=== PATIENT | female | born 2000 | race Caucasian/White ===

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

== ENCOUNTER 2022-09-28 01:05 | Emergency (ER) | payer OTHER ==
[2022-09-28] MEDS ORDERED: IBUPROFEN 800 MG TABLET PO STA (01:55)
[2022-09-28] MEDS ORDERED: hydrOXYzine PAMOATE 25 MG CAPSULE PO STA (02:49)
[2022-09-28 03:10] LABS: RAPID STREP SCREEN Negative (Negative)
[2022-09-28 03:50] LABS: B. PARAPERTUSSIS- RESP PCR PAN NOT DETECTED; B. PERTUSSIS- RESP PCR PANEL NOT DETECTED; C. PNEUMONIAE- RESP PCR PANEL NOT DETECTED; CORONAVIRUS 229E-RESP PCR NOT DETECTED; CORONAVIRUS HKU1-RESP PCR NOT DETECTED; CORONAVIRUS NL63-RESP PCR NOT DETECTED; CORONAVIRUS OC43-RESP PCR NOT DETECTED; HUMAN METAPNEUMOVIRUS NOT DETECTED; INFLUENZA A- RESP PCR PANEL NOT DETECTED; INFLUENZA B - RESP PCR PANEL NOT DETECTED; M. PNEUMONIAE- RESP PCR PANEL NOT DETECTED; PARAINFLUENZA VIRUS 1 NOT DETECTED; PARAINFLUENZA VIRUS 2 NOT DETECTED; PARAINFLUENZA VIRUS 3 NOT DETECTED; PARAINFLUENZA VIRUS 4 NOT DETECTED; RHINOVIRUS/ENTEROVIRUS NOT DETECTED; RSV- RESP PCR PANEL NOT DETECTED; SARS-CoV-2 -RESP PCR PANEL NOT DETECTED
[2022-09-28] MEDS ORDERED: AMOXICILLIN 250 MG CAPSULE PO STA (04:09)
--- NOTE | 2022-09-28 04:27 | ED Physician Documentation ---
PD HPI HEENT - Stated complaint Stated Complaint: F/V/SORE THROAT/HEADACE - Chief complaint Chief Complaint: Fever - History obtained from History obtained from: Patient, Family (Mother) - Additional information Additional information: Patient is a 22-year-old female presenting for evaluation of fevers for the past 6 days along with a sore throat. Patient states her fevers have been as high as 10 2-1 03. She has been using ibuprofen and Tylenol and has not been able to get her fevers to lower. She went to the walk-in clinic 2 days ago and had a negative rapid strep test with a culture pending. She also reports a negative COVID and a flu test. She states that she has a history of strep infections and per mother at the bedside patient and other family members have had strep infections in the past with a rapid is negative but the culture is abnormal. As the walk-in clinic was closed yesterday they do not yet have the results for the culture.She denies cough, congestion, abdominal symptoms. Review of Systems Constitutional: reports: Fever Throat: reports: Sore throat Cardiac: denies: Chest pain / pressure Respiratory: denies: Dyspnea, Cough GI: denies: Abdominal Pain, Vomiting : denies: Dysuria Musculoskeletal: denies: Back pain Neurologic: denies: Headache PD PAST MEDICAL HISTORY - Past Medical History Respiratory: Asthma - Past Surgical History Past Surgical History: No - Present Medications Home Medications: Ambulatory Orders Medication Instructions Recorded Confirmed Cyclobenzaprine [Flexeril] 10 mg PO TID PRN #14 tablet 06/17/17 Amoxicillin 1,000 mg PO DAILY 10 Days #20 cap 09/28/22 - Allergies Allergies/Adverse Reactions: Allergies Allergy/AdvReac Type Severity Reaction Status Date / Time No Known Drug Allergies Allergy Verified 06/17/17 17:58 - Social History Does the pt smoke?: No Smoking Status: Never smoker Does the pt drink ETOH?: No Does the pt have substance abuse?: No - Immunizations Immunizations are current?: Yes - POLST Patient has POLST: No PD ED PE NORMAL - General General: Alert and oriented X 3, No acute distress, Well developed/nourished - HEENT HEENT: Atraumatic, Moist mucous membranes, Other (Exudate to bilateral tonsils, no signs of peritonsillar abscess, normal speech) - Neck Neck: Supple, no meningeal sign - Cardiac Cardiac: RRR, No murmur - Respiratory Respiratory: No respiratory distress, Clear bilaterally - Abdomen Abdomen: Soft, Non tender, Non distended - Back Back: No CVA TTP - Neuro Neuro: Alert and oriented X 3, No motor deficit, Normal speech Results - Vitals Vitals: Vital Signs - 24 hr 09/28/22 09/28/22 09/28/22 01:32 03:19 03:39 Temperature 39.4 C H 39.4 C H Heart Rate 117 H 93 Respiratory 20 16 Rate Blood Pressure 127/64 121/71 O2 Saturation 99 98 09/28/22 04:36 Temperature 37.3 C Heart Rate 73 Respiratory 19 Rate Blood Pressure 143/96 H O2 Saturation 95 Oxygen O2 Source Room air - Labs Labs: Laboratory Tests 09/28/22 09/28/22 02:45 02:45 Nasal Adenovirus (PCR) NOT DETECTED Nasal B. parapertussis DNA (PCR) NOT DETECTED Nasal Coronavir 229E PCR NOT DETECTED Nasal Coronavir HKU1 PCR NOT DETECTED Nasal Coronavir NL63 PCR NOT DETECTED Nasal Coronavir OC43 PCR NOT DETECTED Nasal Enterovir/Rhinovir PCR NOT DETECTED Nasal Influenza B PCR NOT DETECTED Nasal Influenza A PCR NOT DETECTED Nasal Parainfluen 1 PCR NOT DETECTED Nasal Parainfluen 2 PCR NOT DETECTED Nasal Parainfluen 3 PCR NOT DETECTED Nasal Parainfluen 4 PCR NOT DETECTED Nasal RSV (PCR) NOT DETECTED Nasal B.pertussis DNA PCR NOT DETECTED Nasal C.pneumoniae (PCR) NOT DETECTED Eladio Human Metapneumo PCR NOT DETECTED Nasal M.pneumoniae (PCR) NOT DETECTED Nasal SARS-CoV-2 (PCR) NOT DETECTED Group A Strep Rapid Negative PD Medical Decision Making - ED course Complexity details: reviewed results, re-evaluated patient, d/w patient, d/w family ED course: Patient presenting for evaluation of fever and sore throat for the past 6 days with recent negative outpatient testing at the walk-in clinic. She is febrile here and tachycardic but otherwise clinically well-appearing. She does not have symptoms to suggest meningitis. She does have exited to her tonsils with no signs of peritonsillar abscess or deep space infection.No cough or congestion or symptoms to suggest pneumonia or intra-abdominal process. Rapid strep test is negative and the respiratory PCR is negative for tested viruses. She is feeling better here with p.o. Tylenol with reduction in fever and is tolerating p.o. Patient and mother expressed concerns as patient has a history of strep infections in the past with a negative rapid test and positive cultures and they are concerned as her symptoms have been ongoing without improvement for 6 days.We utilize shared decision making and given her symptoms and history we have opted to go ahead and initiate treatment for possible strep infection while culture is pending. I did recommend that they check the portal in 2 to 3 days to check for the culture results.Patient and mother both advised on concerning symptoms to return for. Departure - Departure Disposition: 01 Home, Self Care Clinical Impression: Fever, Pharyngitis Condition: Stable Instructions: ED Fever Control, ED Strep Pharyngitis Poss Prescriptions: Amoxicillin 1,000 mg PO DAILY 10 Days #20 cap Comments: Rapid strep test is negative but based on your history and the fact that your respiratory swab is negative for the viruses that we check for we have opted to treat you for a possible strep infection while the culture is pending. I have sent this prescription to [facility] for amoxicillin for 10 days. I would also recommend checking the culture results in 2 days to see The results. Continue with acetaminophen or ibuprofen as needed for fevers. If you develop any worsening symptoms please return to the emergency department. Forms: Activity restrictions Discharge Date/Time: 09/28/22 04:37
[2022-09-28 04:37] VITALS: BP 143/96
== END 2022-09-28 04:37 | disposition home or self-care (01) ==
LOC: ED 01:05
DX: J02.9 Acute pharyngitis, unspecified (principal); Z20.822 Contact with and (suspected) exposure to COVID-19
CPT/HCPCS: 87070; 87430; 87633; 99283; A9270

== ENCOUNTER 2022-10-15 15:41 | Outpatient (CLI) | payer OTHER ==
[2022-10-16 08:10] LABS: HSV 2 IGG TYPE SPEC <0.91 index (0.00-0.90)
== END 2022-10-15 15:42 | disposition home or self-care (01) ==
LOC: LAB 15:41
PROVIDERS: ATTEND Nurse Practitioner
DX: Z11.3 Encounter for screening for infections with a predominantly sexual mode of transmission (principal)
CPT/HCPCS: 86592; 86695; 86696

== ENCOUNTER 2022-10-16 08:00 | Outpatient (CLI) | payer OTHER ==
[2022-10-16 20:19] LABS: BACTERIAL VAGINOSIS DNA NEGATIVE (NEGATIVE); CANDIDA GLABRATA DNA NEGATIVE (NEGATIVE); CANDIDA GROUP DNA NEGATIVE (NEGATIVE); CANDIDA KRUSEI DNA NEGATIVE (NEGATIVE); TRICHOMONAS VAGINALIS DNA NEGATIVE (NEGATIVE)
[2022-10-16 21:38] LABS: CHLAMYDIA TRACHOMATIS DNA NEGATIVE (NEGATIVE); NEISSERIA GONORRHOEAE DNA NEGATIVE (NEGATIVE); TRICHOMONAS VAGINALIS DNA NEGATIVE (NEGATIVE)
== END 2022-10-16 23:59 | disposition home or self-care (01) ==
LOC: LAB.R 08:00
PROVIDERS: ATTEND Nurse Practitioner
DX: Z11.3 Encounter for screening for infections with a predominantly sexual mode of transmission (principal)
CPT/HCPCS: 81514; 87252; 87491; 87591; 87661

== ENCOUNTER 2022-12-30 09:15 | Outpatient (CLI) | payer OTHER ==
[2022-12-30 12:39] LABS: BASOPHILS % (AUTO) 0.4 %; EOSINOPHILS # (AUTO) 0.1 10^3/uL (0.0-0.7); EOSINOPHILS % (AUTO) 1.6 %; HCT - HEMATOCRIT 43.1 % (37.0-47.0); HGB - HEMOGLOBIN 14.1 g/dL (12.0-16.0); LYMPHOCYTES # (AUTO) 1.8 10^3/uL (1.5-3.5); LYMPHOCYTES % (AUTO) 39.8 %; MEAN CORPUSCULAR HEMOGLOBIN 28.8 pg (27.0-31.0); MEAN CORPUSCULAR HGB CONC 32.7 g/dL (32.0-36.0); MEAN PLATELET VOLUME 9.6 fL (7.9-10.8); MONOCYTES # (AUTO) 0.5 10^3/uL (0.0-1.0); MONOCYTES % (AUTO) 11.6 %; NEUTROPHILS # (AUTO) 2.1 10^3/uL (1.5-6.6); NEUTROPHILS % (AUTO) 46.4 %; PLT - PLATELET COUNT 301 10^3/uL (130-450); WHITE BLOOD COUNT 4.5 x10^3/uL (4.8-10.8)
[2022-12-30 13:03] LABS: ALBUMIN 4.6 g/dL (3.2-5.5); ALBUMIN/GLOBULIN RATIO 1.5 (1.0-2.2); BILIRUBIN,TOTAL 0.4 mg/dL (0.2-1.0); CALCIUM 9.8 mg/dL (8.5-10.3); CREATININE 0.6 mg/dL (0.6-1.3); POTASSIUM 4.2 mmol/L (3.5-4.5); TOTAL PROTEIN 7.6 g/dL (6.4-8.9)
[2022-12-31 04:09] LABS: RPR Non Reactive (Non Reactive)
[2022-12-31 06:11] LABS: HSV 1 IGG TYPE SPEC 8.78 index (0.00-0.90); HSV 2 IGG TYPE SPEC <0.91 index (0.00-0.90)
== END 2022-12-30 09:30 | disposition home or self-care (01) ==
LOC: LAB.N 09:15
PROVIDERS: ATTEND Physician Assistant Medical
DX: R10.9 Unspecified abdominal pain (principal); Z11.3 Encounter for screening for infections with a predominantly sexual mode of transmission
CPT/HCPCS: 36415; 80053; 83690; 85025; 86592; 86695; 86696

== ENCOUNTER 2023-01-08 08:00 | Outpatient (CLI) | payer OTHER | END 2023-01-08 23:59 | disposition home or self-care (01) | LOC: LAB.WC 08:00 | PROVIDERS: ATTEND Nurse Practitioner | DX: N90.89 Other specified noninflammatory disorders of vulva and perineum (principal) | CPT/HCPCS: 81514; 81599; 87109; 87252; 87491; 87591; 87661 ==